=== PATIENT | male | born 1975 | race Caucasian/White ===

== ENCOUNTER 2018-10-13 12:33 | Emergency (ER) | payer BC, SELFPAY ==
[2018-10-13 12:39] VITALS: BP 165/123; PULSE 126; RESP 16; TEMP 37; O2SAT 96
--- NOTE | 2018-10-13 12:44 | W.ED.GENAD ---
Discharge Plan Disposition Patient Disposition: HOME Condition: Good Discharge Details Chief Complaint: EyeProblem Clinical Impression: Acute conjunctivitis of left eye ED Provider: Aaron Geiger Home Meds and New Rx's Prescriptions: New erythromycin 5 mg/gram (0.5 %) ointment 1.25 cm OP TID 5 Days Qty: 1 RF: 0 Discharge Instructions Instructions: Conjunctivitis (ED) Additional Instructions: if you have vision changes, or deep eye pain return to the emergency department follow up with [facility] if not better in 2 days. [phone] Medical Decision Making 43 yo male comes in with complaint of left eye discomfort since last night. Denies any known trauma or foreign body. this morning had discharge and crusting of the left eye when he woke up and redness so came here. HAsn't worn contacts in 4 months. PERRL, eomi without pain and denies deep eye pain, 20/15 vision with glassess in both eyes. Has conjunctiva injection of left part of left eye, no corneal abrasion or foreign body seen on flourescein or other abnormalities. Will treat as conjunctivitis and advised f/u with business services analyst if not better in 2 days and return if worsening or vision changes Differential Diagnosis conjunctivitis, corneal abrasion HPI General Mode of arrival: ambulatory. Date/Time Provider Initiated Documentation: 10/13/18 12:42. Limitations to Documentation: no limitations. Information obtained by: patient. History of Present Illness 43 year old M presents to the emergency department with the chief complaint of left eye discomfort, described as mild, and is localized to the eyes and left. Patient reports no radiation. Patient started experiencing this day(s) (1) and it has been constant. No relieving factors improve symptom(s), No exacerbating factors reported . Patient notes no other symptoms.. Patient did receive the following treatments prior to arrival, none Related Data Home Medications Medication Instructions Recorded Confirmed erythromycin 1.25 cm OP TID 5 Days #1 gm 10/13/18 Previous Rx's Medication Instructions Recorded erythromycin 1.25 cm OP TID 5 Days #1 gm 10/13/18 Allergies Allergy/AdvReac Type Severity Reaction Status Date / Time Penicillins Allergy Unverified 10/13/18 12:44 Tetracyclines Allergy Unverified 10/13/18 12:44 General Stated Complaint: EyeProblem KATI: 3 Review of Systems Review of Systems All systems reviewed & are unremarkable except as noted in HPI and below Constitutional Denies chills, Denies fever(s) and Denies weakness Eyes Denies loss of vision ENT Denies change in voice Cardiovascular Denies chest pain and Denies dyspnea Respiratory Denies dyspnea Gastrointestinal Denies abdominal pain, Denies nausea and Denies vomiting Genitourinary Denies dysuria Musculoskeletal Denies joint swelling Integumentary/Breasts Denies rash Neurologic Denies loss of vision and Denies weakness PFSH Social History Smoking/Tobacco Use Status: Current every day Exam Const General: no acute distress Orientation: alert HENMT Head: normal to inspection Ears: external ears normal General nose exam: external nose normal Mouth: moist mucous membranes Eyes General: appearance normal, both eyes and all related structures Neck Neck: normal visual inspection Resp Effort & Inspection: normal respiratory effort and able to speak in complete sentences Cardio Rate: regular rate Skin General skin exam: no rashes or lesions noted Neuro General: alert and oriented x3 Extrem General: normal to inspection Psych Mental Status: mental status grossly normal Course Vital Signs Temperature 37 C 10/13/18 12:39 Pulse 126 H 10/13/18 12:39 Respiratory Rate 16 10/13/18 12:39 Blood Pressure 165/123 H 10/13/18 12:39 Pulse Oximetry 96 10/13/18 12:39 Temperature 37 C 10/13/18 12:39 Temperature Source Skin 10/13/18 12:39 Pulse 126 H 10/13/18 12:39 Respiratory Rate 16 10/13/18 12:39 Respiratory Effort 10/13/18 12:39 Blood Pressure 165/123 H 10/13/18 12:39 Blood Pressure Position Sitting 10/13/18 12:39 Pulse Oximetry 96 10/13/18 12:39 Oxygen Delivery Method Room Air 10/13/18 12:39 Oxygen Flow Rate 0 10/13/18 12:39 Pain Level 4 10/13/18 12:39
== END 2018-10-13 13:04 | disposition home or self-care (01) ==
PROVIDERS: Emergency Provider Emergency Medicine
DX: H10.32 Unspecified acute conjunctivitis, left eye (principal); I10 Essential (primary) hypertension
CPT/HCPCS: 99283